=== PATIENT | male | born 1940 | race Caucasian/White ===

== ENCOUNTER 2019-11-12 05:42 | Emergency (ER) | payer MEDICARE, MEDICAID ==
--- NOTE | 2019-11-12 06:31 | EDM.PDOC ---
<OfficerFausto - Last Filed: 11/12/19 06:29> ED HPI GENERAL MEDICAL PROBLEM - General Chief Complaint: Gastrointestinal Problem Stated Complaint: LOWER ABD PAIN Time Seen by Provider: 11/12/19 06:23 Source of Information: Reports: Patient, Family, RN Notes Reviewed History Limitations: Reports: No Limitations - History of Present Illness INITIAL COMMENTS - FREE TEXT/NARRATIVE: 79-year-old gentleman presents emergency department a complaint of abdominal pain, the abdominal pain started early this morning pain was quite severe however it is now resolved he states he is not passing any gas has felt nauseated that has resolved had a normal bowel movement yesterday lower abd pain Pain Score (Numeric/FACES): 2 - Related Data Allergies Allergy/AdvReac Type Severity Reaction Status Date / Time pollen extracts Allergy Sneezing Verified 11/12/19 06:10 Home Meds: Home Meds Potassium Chloride 10 meq PO DAILY 11/12/19 [History] Simvastatin 40 mg PO DAILY 11/12/19 [History] hydroCHLOROthiazide [Hydrochlorothiazide] 25 mg PO DAILY 11/12/19 [History] lisinopriL [Lisinopril] 10 mg PO DAILY 11/12/19 [History] Past Medical History HEENT History: Reports: Impaired Vision Cardiovascular History: Reports: High Cholesterol, Hypertension Musculoskeletal History: Reports: Arthritis - Infectious Disease History Infectious Disease History: Reports: Measles Social & Family History - Tobacco Use Smoking Status *Q: Never Smoker - Caffeine Use Caffeine Use: Reports: Coffee - Recreational Drug Use Recreational Drug Use: No ED ROS GENERAL - Review of Systems Review Of Systems: See Below Constitutional: Reports: No Symptoms HEENT: Reports: No Symptoms Respiratory: Reports: No Symptoms Cardiovascular: Reports: No Symptoms GI/Abdominal: Reports: Abdominal Pain, Nausea. Denies: Constipation, Diarrhea, Flatus, Vomiting : Reports: No Symptoms Musculoskeletal: Reports: No Symptoms ED EXAM, GI/ABD - Physical Exam Exam: See Below Exam Limited By: No Limitations General Appearance: Alert, WD/WN, No Apparent Distress Head: Atraumatic, Normocephalic Neck: Normal Inspection, Supple, Non-Tender, Full Range of Motion Respiratory/Chest: No Respiratory Distress, Lungs Clear, Normal Breath Sounds, No Accessory Muscle Use, Chest Non-Tender Cardiovascular: Regular Rate, Rhythm, No Murmur GI/Abdominal Exam: Normal Bowel Sounds, Soft, Non-Tender, No Organomegaly, No Distention Course - Vital Signs Last Recorded V/S: Last Vital Signs Temp 96.4 F 11/12/19 06:04 Pulse 98 11/12/19 06:04 Resp 14 11/12/19 06:04 BP 138/79 11/12/19 06:04 Pulse Ox 100 11/12/19 06:04 - Orders/Labs/Meds Orders: Active Orders 24 hr Category Date Time Status Abdomen 1V Upright [CR] Urgent Exams 11/12/19 06:27 Taken Labs: Laboratory Tests 11/12/19 11/12/19 11/12/19 Range/Units 06:38 06:38 06:38 WBC 8.3 (4.5-11.0) K/uL RBC 3.71 L (4.30-5.90) M/uL Hgb 11.8 L (12.0-15.0) g/dL Hct 35.7 L (40.0-54.0) % MCV 96 (80-98) fL MCH 32 H (27-31) pg MCHC 33 (32-36) % Plt Count 278 (150-400) K/uL Neut % (Auto) 89 H (36-66) % Lymph % (Auto) 5 L (24-44) % Dickens % (Auto) 5 (2-6) % Eos % (Auto) 0 L (2-4) % Baso % (Auto) 0 (0-1) % Sodium 138 L (140-148) mmol/L Potassium 3.4 L (3.6-5.2) mmol/L Chloride 100 (100-108) mmol/L Carbon Dioxide 27 (21-32) mmol/L Anion Gap 14.4 H (5.0-14.0) mmol/L BUN 17 (7-18) mg/dL Creatinine 1.0 (0.8-1.3) mg/dL Est Cr Clr Drug Dosing 58.90 mL/min Estimated GFR (MDRD) > 60 (>60) Glucose 127 H (74-106) mg/dL Lactic Acid 3.2 H (0.4-2.0) mmol/L Calcium 8.8 (8.5-10.1) mg/dL Total Bilirubin 0.3 (0.2-1.0) mg/dL AST 21 (15-37) U/L ALT 19 (12-78) U/L Alkaline Phosphatase 47 (46-116) U/L Troponin I < 0.017 (0.000-0.056) ng/mL Total Protein 7.1 (6.4-8.2) g/dL Albumin 3.4 (3.4-5.0) g/dL Globulin 3.7 H (2.3-3.5) g/dL Albumin/Globulin Ratio 0.9 L (1.2-2.2) Lipase 88 (73-393) U/L Urine Color (YELLOW) Urine Appearance (CLEAR) Urine pH (5.0-8.0) Ur Specific Mullins (1.008-1.030) Urine Protein (NEGATIVE) mg/dL Urine Glucose (UA) (NEGATIVE) mg/dL Urine Ketones (NEGATIVE) mg/dL Urine Occult Blood (NEGATIVE) Urine Nitrite (NEGATIVE) Urine Bilirubin (NEGATIVE) Urine Urobilinogen (0.2-1.0) EU/dL Ur Leukocyte Esterase (NEGATIVE) Urine RBC (0-5) Urine WBC (0-5) Ur Epithelial Cells Amorphous Sediment Urine Bacteria Urine Mucus 11/12/19 Range/Units 07:23 WBC (4.5-11.0) K/uL RBC (4.30-5.90) M/uL Hgb (12.0-15.0) g/dL Hct (40.0-54.0) % MCV (80-98) fL MCH (27-31) pg MCHC (32-36) % Plt Count (150-400) K/uL Neut % (Auto) (36-66) % Lymph % (Auto) (24-44) % Dickens % (Auto) (2-6) % Eos % (Auto) (2-4) % Baso % (Auto) (0-1) % Sodium (140-148) mmol/L Potassium (3.6-5.2) mmol/L Chloride (100-108) mmol/L Carbon Dioxide (21-32) mmol/L Anion Gap (5.0-14.0) mmol/L BUN (7-18) mg/dL Creatinine (0.8-1.3) mg/dL Est Cr Clr Drug Dosing mL/min Estimated GFR (MDRD) (>60) Glucose (74-106) mg/dL Lactic Acid (0.4-2.0) mmol/L Calcium (8.5-10.1) mg/dL Total Bilirubin (0.2-1.0) mg/dL AST (15-37) U/L ALT (12-78) U/L Alkaline Phosphatase (46-116) U/L Troponin I (0.000-0.056) ng/mL Total Protein (6.4-8.2) g/dL Albumin (3.4-5.0) g/dL Globulin (2.3-3.5) g/dL Albumin/Globulin Ratio (1.2-2.2) Lipase (73-393) U/L Urine Color Yellow (YELLOW) Urine Appearance Clear (CLEAR) Urine pH 5.5 (5.0-8.0) Ur Specific Mullins 1.015 (1.008-1.030) Urine Protein Negative (NEGATIVE) mg/dL Urine Glucose (UA) 100 H (NEGATIVE) mg/dL Urine Ketones Negative (NEGATIVE) mg/dL Urine Occult Blood Negative (NEGATIVE) Urine Nitrite Negative (NEGATIVE) Urine Bilirubin Negative (NEGATIVE) Urine Urobilinogen 0.2 (0.2-1.0) EU/dL Ur Leukocyte Esterase Negative (NEGATIVE) Urine RBC Not seen (0-5) Urine WBC Not seen (0-5) Ur Epithelial Cells Not seen Amorphous Sediment Not seen Urine Bacteria Not seen Urine Mucus Moderate Departure - Departure Disposition: Home, Self-Care 01 Clinical Impression: Abdominal pain Qualifiers: Abdominal location: epigastric Qualified Code(s): R10.13 - Epigastric pain - Discharge Information Instructions: Abdominal Pain, Adult, [id number] Referrals: Jem More Sr, MD [Primary Care Provider] - Forms: ED Department Discharge Care Plan Goals: Increase activity and diet as tolerated and consider a few doses of MiraLAX over the next several days. Return if worsening such as increased pain or fever. Sepsis Event Note - Evaluation Sepsis Screening Result: No Definite Risk - Focused Exam Vital Signs: Vital Signs Temp Pulse Resp BP Pulse Ox 11/12/19 06:04 96.4 F 98 14 138/79 100 11/12/19 05:57 96.4 F 98 14 138/79 100 Date Exam was Performed: 11/12/19 Time Exam was Performed: 06:29 <Luigi Astudillo - Last Filed: 11/12/19 08:25> Course - Re-Assessments/Exams Free Text/Narrative Re-Assessment/Exam: 11/12/19 07:45 Care turned over from Officer pending lab and x-ray. X-ray shows a hiatal hernia, no other acute findings. Probable mild constipation. Patient had no symptoms the last hour and a half in the emergency room, and labs returned reassuring with a normal white count. He will be discharged and take a few doses of MiraLAX over the next several days and return if pain recurs especially if he develops a fever or other concerns. Departure - Departure Time of Disposition: 08:10 Sepsis Event Note - Focused Exam Date Exam was Performed: 11/12/19 Time Exam was Performed: 08:25
--- NOTE | 2019-11-12 09:32 | CR ---
Abdomen 1V Upright CLINICAL HISTORY: Pain FINDINGS: No free air is identified. The bowel gas pattern is nonobstructive. No abnormal masses are noted. There is a large hiatal hernia. There is fecal retention throughout the right and transverse colon. There are severe degenerative changes through the lumbar spine and both hips. IMPRESSION: Moderate fecal retention Large hiatal hernia Severe degenerative changes in the spine and hips
== END 2019-11-12 08:10 | disposition home or self-care (01) ==
LOC: JP.ED 05:42
DX: R10.13 Epigastric pain (principal); E78.00 Pure hypercholesterolemia, unspecified; I10 Essential (primary) hypertension; Z91.09 Other allergy status, other than to drugs and biological substances; Z79.899 Other long term (current) drug therapy
CPT/HCPCS: 36415; 74018; 74018-26; 80053; 81001; 83605; 83690; 84484; 85025; 99283; 99284-25

== ENCOUNTER 2021-02-11 18:24 | Emergency (ER) | payer MEDICARE, MEDICAID ==
[2021-02-11] MEDS ORDERED: HYDROmorphone 0.5 MG/0.5 ML Syringe IVPUSH ONE ×2 (18:44→21:29)
[2021-02-11] MEDS ORDERED: Ondansetron 4 MG/2 ML SDV IVPUSH ONE (18:44)
[2021-02-11] MEDS ORDERED: Sodium Chloride 0.9% 10 ML Syringe FLUSH PRN (18:44)
[2021-02-11] MEDS ORDERED: Lactated Ringers 1,000 ML IV SCH (18:45)
--- NOTE | 2021-02-11 18:50 | EDM.PDOC ---
ED HPI GENERAL MEDICAL PROBLEM - General Chief Complaint: Abdominal Pain Stated Complaint: NOT FEELING WELL Time Seen by Provider: 02/11/21 18:43 Source of Information: Reports: Patient History Limitations: Reports: No Limitations - History of Present Illness INITIAL COMMENTS - FREE TEXT/NARRATIVE: David is a 80-year-old male presenting to the ED for evaluation of acute onset of severe abdominal pain, nausea, and vomiting. The patient states his symptoms started about an hour prior to arrival. He is afebrile but tachycardic. While being checked into the room, the patient had a large volume emesis producing about 300 cc of bilious emesis. He denies any fever or chills, cough or shortness of breath, chest pain or back pain. Both he and his brother say that he had a similar episode about a year ago and they were not able to find anything. He has not been vaccinated yet for COVID-19 because of the lack of availability of vaccine at Dr. More's office. Abdomen Pain Score (Numeric/FACES): 2 - Related Data Allergies Allergy/AdvReac Type Severity Reaction Status Date / Time pollen extracts Allergy Sneezing Verified 11/12/19 06:10 Home Meds: Home Meds Potassium Chloride 10 meq PO DAILY 11/12/19 [History] Simvastatin 40 mg PO DAILY 11/12/19 [History] hydroCHLOROthiazide [Hydrochlorothiazide] 25 mg PO DAILY 11/12/19 [History] lisinopriL [Lisinopril] 10 mg PO DAILY 11/12/19 [History] Latanoprost/Pf [Latanoprost 0.005% Eye Drop] 1 drop EYEBOTH DAILY 02/11/21 [History] Past Medical History HEENT History: Reports: Impaired Vision Cardiovascular History: Reports: High Cholesterol, Hypertension Musculoskeletal History: Reports: Arthritis - Infectious Disease History Infectious Disease History: Reports: Measles Social & Family History - Caffeine Use Caffeine Use: Reports: Coffee ED ROS GENERAL - Review of Systems Review Of Systems: See Below Constitutional: Reports: No Symptoms HEENT: Reports: No Symptoms Respiratory: Reports: No Symptoms Cardiovascular: Reports: No Symptoms Endocrine: Reports: No Symptoms GI/Abdominal: Reports: Abdominal Pain (Severe epigastric and upper abdominal pain), Nausea, Vomiting (Bilious emesis) : Reports: No Symptoms Musculoskeletal: Reports: No Symptoms Skin: Reports: No Symptoms Neurological: Reports: No Symptoms Psychiatric: Reports: No Symptoms Hematologic/Lymphatic: Reports: No Symptoms Immunologic: Reports: No Symptoms ED EXAM, GI/ABD - Physical Exam Exam: See Below Exam Limited By: No Limitations General Appearance: Alert, Anxious, Moderate Distress Eyes: Bilateral: EOMI Throat/Mouth: Normal Inspection, Normal Oropharynx, Normal Voice, No Airway Compromise. 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 No: Distended, Guarding, Rigid, Rebound Back Exam: Normal Inspection Extremities: Normal Inspection, Normal Range of Motion Neurological: Alert, Oriented, Normal Cognition, No Motor/Sensory Deficits Psychiatric: Normal Affect, Normal Mood Skin Exam: Warm, Dry, Intact, Normal Color Lymphatic: No Adenopathy Course - Vital Signs Last Recorded V/S: Last Vital Signs Temp 36.2 C 02/11/21 19:10 Pulse 79 02/11/21 19:10 Resp 14 02/11/21 19:10 BP 125/77 02/11/21 19:10 Pulse Ox 99 02/11/21 19:10 - Orders/Labs/Meds Orders: Active Orders 24 hr Category Date Time Status Abdomen 1V Upright [CR] Stat Exams 02/11/21 21:38 Stop Req Chest 1V Frontal [CR] Stat Exams 02/11/21 21:38 Stop Req NG Tube Placement [CR] Stat Exams 02/11/21 21:37 Ordered CULTURE BLOOD [BC] Urgent Lab 02/11/21 18:50 Received CULTURE BLOOD [BC] Urgent Lab 02/11/21 19:00 Received UA W/MICROSCOPIC [URIN] Stat Lab 02/11/21 18:44 Ordered Iopamidol [Isovue-300 (61%)] Med 02/11/21 19:30 Active 100 ml IV . DIRECTED Lactated Ringers [Ringers, Lactated] 1,000 ml Med 02/11/21 18:45 Active IV ASDIRECTED Sodium Chloride 0.9% [Normal Saline] 80 ml Med 02/11/21 19:30 Active IV ASDIRECTED Sodium Chloride 0.9% [Saline Flush] Med 02/11/21 18:44 Active 10 ml FLUSH ASDIRECTED PRN Blood Culture x2 Reflex Set [OM.PC] Urgent Oth 02/11/21 18:46 Ordered Isolation [COMM] Stat Ot 02/11/21 19:14 Ordered NG [Nasogastric Orogastric Tube Insertion] [OM.PC] Ot 02/11/21 21:38 Ordered Routine Saline Lock Insert [OM.PC] Routine Ot 02/11/21 18:44 Ordered Medication Orders Lactated Ringer's (Ringers, Lactated) 1,000 mls @ 250 mls/hr IV ASDIRECTED CANDICE Last Admin: 02/11/21 18:56 Dose: 250 mls/hr Documented by: CORIE Sodium Chloride (Normal Saline) 80 mls @ 3 mls/sec IV ASDIRECTED CANDICE Last Admin: 02/11/21 19:43 Dose: 3 mls/sec Documented by: ALEKSANDR Iopamidol (Iopamidol 612 Mg/Ml 100 Ml Bottle) 100 ml IV . DIRECTED CANDICE Last Admin: 02/11/21 19:43 Dose: 100 ml Documented by: ALEKSANDR Sodium Chloride (Sodium Chloride 0.9% 10 Ml Syringe) 10 ml FLUSH ASDIRECTED PRN PRN Reason: Keep Vein Open Last Admin: 02/11/21 19:17 Dose: 10 ml Documented by: CORIE Labs: Laboratory Tests 02/11/21 02/11/21 02/11/21 Range/Units 18:50 18:50 18:50 WBC 6.8 (4.5-11.0) K/uL RBC 4.23 L (4.30-5.90) M/uL Hgb 13.4 (12.0-15.0) g/dL Hct 39.9 L (40.0-54.0) % MCV 94 (80-98) fL MCH 32 H (27-31) pg MCHC 34 (32-36) % Plt Count 302 (150-400) K/uL Neut % (Auto) 80 H (36-66) % Lymph % (Auto) 10 L (24-44) % Levy % (Auto) 9 H (2-6) % Eos % (Auto) 1 L (2-4) % Baso % (Auto) 0 (0-1) % Sodium 141 (140-148) mmol/L Potassium 3.6 (3.6-5.2) mmol/L Chloride 97 L (100-108) mmol/L Carbon Dioxide 30 (21-32) mmol/L Anion Gap 17.6 H (5.0-14.0) mmol/L BUN 19 H (7-18) mg/dL Creatinine 1.1 (0.8-1.3) mg/dL Est Cr Clr Drug Dosing 49.14 mL/min Estimated GFR (MDRD) > 60 (>60) Glucose 112 H (74-106) mg/dL Lactic Acid 2.6 H (0.4-2.0) mmol/L Calcium 9.2 (8.5-10.1) mg/dL Total Bilirubin 0.5 D (0.2-1.0) mg/dL AST 27 (15-37) U/L ALT 25 (12-78) U/L Alkaline Phosphatase 68 (46-116) U/L C-Reactive Protein 0.14 (0.0-0.3) mg/dL Total Protein 7.8 (6.4-8.2) g/dL Albumin 3.9 (3.4-5.0) g/dL Globulin 3.9 H (2.3-3.5) g/dL Albumin/Globulin Ratio 1.0 L (1.2-2.2) Lipase 95 (73-393) U/L Influenza Type A RNA (NEGATIVE) RSV RNA (INAAT) (NEGATIVE) Influenza Type B RNA (NEGATIVE) SARS-CoV-2 RNA (MARKOS) (NEGATIVE) 02/11/21 Range/Units 19:05 WBC (4.5-11.0) K/uL RBC (4.30-5.90) M/uL Hgb (12.0-15.0) g/dL Hct (40.0-54.0) % MCV (80-98) fL MCH (27-31) pg MCHC (32-36) % Plt Count (150-400) K/uL Neut % (Auto) (36-66) % Lymph % (Auto) (24-44) % Levy % (Auto) (2-6) % Eos % (Auto) (2-4) % Baso % (Auto) (0-1) % Sodium (140-148) mmol/L Potassium (3.6-5.2) mmol/L Chloride (100-108) mmol/L Carbon Dioxide (21-32) mmol/L Anion Gap (5.0-14.0) mmol/L BUN (7-18) mg/dL Creatinine (0.8-1.3) mg/dL Est Cr Clr Drug Dosing mL/min Estimated GFR (MDRD) (>60) Glucose (74-106) mg/dL Lactic Acid (0.4-2.0) mmol/L Calcium (8.5-10.1) mg/dL Total Bilirubin (0.2-1.0) mg/dL AST (15-37) U/L ALT (12-78) U/L Alkaline Phosphatase (46-116) U/L C-Reactive Protein (0.0-0.3) mg/dL Total Protein (6.4-8.2) g/dL Albumin (3.4-5.0) g/dL Globulin (2.3-3.5) g/dL Albumin/Globulin Ratio (1.2-2.2) Lipase (73-393) U/L Influenza Type A RNA Negative (NEGATIVE) RSV RNA (INAAT) Negative (NEGATIVE) Influenza Type B RNA Negative (NEGATIVE) SARS-CoV-2 RNA (MARKOS) Negative (NEGATIVE) Meds: Medications Generic Name Dose Route Start Last Admin Trade Name Freq PRN Reason Stop Dose Admin Lactated Ringer's 1,000 mls @ 250 mls/hr 02/11/21 18:45 02/11/21 18:56 Ringers, Lactated IV 250 mls/hr ASDIRECTED CANDICE Administration Sodium Chloride 80 mls @ 3 mls/sec 02/11/21 19:30 02/11/21 19:43 Normal Saline IV 3 mls/sec ASDIRECTED CANDICE Administration Iopamidol 100 ml 02/11/21 19:30 02/11/21 19:43 Iopamidol 612 Mg/Ml 100 Ml Bottle IV 100 ml . DIRECTED CANDICE Administration Sodium Chloride 10 ml 02/11/21 18:44 02/11/21 19:17 Sodium Chloride 0.9% 10 Ml Syringe FLUSH 10 ml ASDIRECTED PRN Administration Keep Vein Open Discontinued Medications Generic Name Dose Route Start Last Admin Trade Name Arlen PRN Reason Stop Dose Admin Hydromorphone HCl 0.5 mg 02/11/21 18:44 02/11/21 18:56 Hydromorphone 0.5 Mg/0.5 Ml Syringe IVPUSH 02/11/21 18:45 0.5 mg ONETIME ONE Administration Hydromorphone HCl 0.5 mg 02/11/21 21:29 02/11/21 21:32 Hydromorphone 0.5 Mg/0.5 Ml Syringe IVPUSH 02/11/21 21:30 0.5 mg ONETIME ONE Administration Hydromorphone HCl Confirm 02/11/21 21:30 Hydromorphone 0.5 Mg/0.5 Ml Syringe Administered 02/11/21 21:31 Dose 0.5 mg .ROUTE .STK-MED ONE Ondansetron HCl 4 mg 02/11/21 18:44 02/11/21 18:56 Ondansetron 4 Mg/2 Ml Sdv IVPUSH 02/11/21 18:45 4 mg ONETIME ONE Administration - Re-Assessments/Exams Free Text/Narrative Re-Assessment/Exam: 02/11/21 21:00 I reviewed the patient's labs showing a normal CBC. The patient's comprehensive metabolic panel is only significant for an anion gap of 17.6. The patient's lactic acid is elevated at 2.6. He does not appear septic with a normal pulse rate and temperature. His blood pressure is also stable at 161/82. We did proceed with a CT of the abdomen and pelvis with contrast demonstrating a large hiatal hernia containing distal stomach, consistent with a mesentero-axial volvulus. There is moderate gastric distention at transition point at the pylorus, highly concerning for strangulation and gastric outlet obstruction. They recommended surgical consult. I discussed the case with Dr. Hinojosa who states that he is already overloaded with cases and recommended transfer of the patient to another facility. I discussed the case with Dr. James from [facility] who recommended placement of an NG tube and admission of the patient to the hospitalist service with consultation to him when the patient arrives. We are arranging for the patient to go by [facility] code 3. 02/11/21 21:49 I also discussed the case with the hospitalist and the emergency room physician Dr. Sosa. Patient is excepted for transfer by ground. Departure - Departure Time of Disposition: 21:42 Disposition: DC/Tfer to [facility] 02 Clinical Impression: Gastric outlet obstruction, Hiatal hernia, Mesenteroaxial gastric volvulus - Discharge Information Referrals: Jem More Sr, MD [Primary Care Provider] - Forms: ED Department Discharge Sepsis Event Note (ED) - Focused Exam Vital Signs: Vital Signs Temp Pulse Resp BP Pulse Ox 02/11/21 19:10 36.2 C 79 14 125/77 99 02/11/21 18:53 36.2 C 123 H 20 173/101 H 100 - Problem List & Annotations (1) Abdominal pain SNOMED Code(s): 64852081 Code(s): R10.9 - UNSPECIFIED ABDOMINAL PAIN Status: Acute Priority: High Current Visit: No Qualifiers: Abdominal location: epigastric Qualified Code(s): R10.13 - Epigastric pain (2) Gastric outlet obstruction SNOMED Code(s): 975916311 Code(s): K31.1 - ADULT HYPERTROPHIC PYLORIC STENOSIS Status: Acute Priority: High Current Visit: Yes (3) Hiatal hernia SNOMED Code(s): 36873945 Code(s): K44.9 - DIAPHRAGMATIC HERNIA WITHOUT OBSTRUCTION OR GANGRENE Status: Acute Priority: High Current Visit: Yes (4) Mesenteroaxial gastric volvulus SNOMED Code(s): 78576825 Code(s): K31.89 - OTHER DISEASES OF STOMACH AND DUODENUM Status: Acute Priority: High Current Visit: Yes - Problem List Review Problem List Initiated/Reviewed/Updated: Yes - My Orders Last 24 Hours: My Active Orders 02/11/21 18:44 UA W/MICROSCOPIC [URIN] Stat Sodium Chloride 0.9% [Saline Flush] 10 ml FLUSH ASDIRECTED PRN Saline Lock Insert [OM.PC] Routine 02/11/21 18:45 Lactated Ringers [Ringers, Lactated] 1,000 ml IV ASDIRECTED 02/11/21 18:46 Blood Culture x2 Reflex Set [OM.PC] Urgent 02/11/21 18:50 CULTURE BLOOD [BC] Urgent 02/11/21 19:00 CULTURE BLOOD [BC] Urgent 02/11/21 19:14 Isolation [COMM] Stat 02/11/21 19:30 Iopamidol [Isovue-300 (61%)] 100 ml IV . DIRECTED Sodium Chloride 0.9% [Normal Saline] 80 ml IV ASDIRECTED 02/11/21 21:37 NG Tube Placement [CR] Stat 02/11/21 21:38 Abdomen 1V Upright [CR] Stat Chest 1V Frontal [CR] Stat NG [Nasogastric Orogastric Tube Insertion] [OM.PC] Routine - Assessment/Plan Last 24 Hours: My Active Orders 02/11/21 18:44 UA W/MICROSCOPIC [URIN] Stat Sodium Chloride 0.9% [Saline Flush] 10 ml FLUSH ASDIRECTED PRN Saline Lock Insert [OM.PC] Routine 02/11/21 18:45 Lactated Ringers [Ringers, Lactated] 1,000 ml IV ASDIRECTED 02/11/21 18:46 Blood Culture x2 Reflex Set [OM.PC] Urgent 02/11/21 18:50 CULTURE BLOOD [BC] Urgent 02/11/21 19:00 CULTURE BLOOD [BC] Urgent 02/11/21 19:14 Isolation [COMM] Stat 02/11/21 19:30 Iopamidol [Isovue-300 (61%)] 100 ml IV . DIRECTED Sodium Chloride 0.9% [Normal Saline] 80 ml IV ASDIRECTED 02/11/21 21:37 NG Tube Placement [CR] Stat 02/11/21 21:38 Abdomen 1V Upright [CR] Stat Chest 1V Frontal [CR] Stat NG [Nasogastric Orogastric Tube Insertion] [OM.PC] Routine
[2021-02-11] MEDS ORDERED: Iopamidol 612 MG/ML 100 ML Bottle IV SCH (19:30)
[2021-02-11] MEDS ORDERED: Sodium Chloride 0.9% 80 ML IV SCH (19:30)
[2021-02-11 19:56] LABS: CORONAVIRUS COVID-19 NAA NEGATIVE (NEGATIVE)
--- NOTE | 2021-02-11 21:19 | CRLCT ---
Indication: Abdominal pain, vomiting Technique: Contrast enhanced axial CT imaging through the abdomen and pelvis. 100 mL Isovue-300 contrast agent was administered intravenously. Sagittal and coronal reconstructions are provided. Comparison: None Findings: No abnormalities are demonstrated relating to the liver, gallbladder, spleen, pancreas, adrenal glands, and kidneys. The portal vein is patent. There is tortuosity and atherosclerosis of the abdominal without aortic aneurysm. There is no abdominal lymphadenopathy. There is a partially visualized large hiatal hernia, containing the gastric body and antrum, while the gastric fundus remains intra-abdominal, consistent with mesentero-axial volvulus. There is moderate gastric distention with transition point at the pylorus, highly concerning for strangulation and gastric outlet obstruction. There is no small bowel wall thickening or abnormal distention. The appendix is noninflamed. There is no colonic wall thickening, mesenteric edema, or intraperitoneal free fluid. There is mild urinary bladder wall thickening. There is no pelvic edema or free fluid. The prostate gland is not enlarged. Advanced degenerative changes are noted in the lumbar spine. There is mild bibasilar atelectasis. Impression: 1. Large hiatal hernia containing the distal stomach, consistent with mesentero-axial volvulus. Moderate gastric distention with transition point at the pylorus, highly concerning for strangulation and gastric outlet obstruction. Surgical consultation is recommended. Dr. Bergman was notified via phone call. 2. Mild urinary bladder wall thickening. Correlate with urinalysis to exclude cystitis. Please note that all CT scans at this facility use dose modulation, iterative reconstruction, and/or weight-based dosing when appropriate to reduce radiation dose to as low as reasonably achievable. Dictated by Wayne Hobbs MD @ 02/11/2021 9:19:[address] Wayne Hobbs @ Feb 11 2021 9:19PM
[2021-02-11] MEDS ORDERED: HYDROmorphone 0.5 MG/0.5 ML Syringe ONE (21:30)
--- NOTE | 2021-02-12 12:09 | CR ---
CHEST: Portable 02/11/2021 at 10:02 PM CLINICAL HISTORY:NG tube placement COMPARISON:None FINDINGS: Linear density in the left upper chest is most likely a skin fold. There is a double density in the retrocardiac region consistent with a hiatal hernia. NG tube is in the body of the stomach. Lungs are clear. There are atherosclerotic changes in the aorta. Impression: NG tube is in the mid stomach Hiatal hernia
== END 2021-02-11 22:21 ==
LOC: JP.ED 18:24
DX: K31.89 Other diseases of stomach and duodenum (principal); K44.0 Diaphragmatic hernia with obstruction, without gangrene; E78.00 Pure hypercholesterolemia, unspecified; I10 Essential (primary) hypertension; Z91.048 Other nonmedicinal substance allergy status; Z79.899 Other long term (current) drug therapy; Z20.822 Contact with and (suspected) exposure to COVID-19
CPT/HCPCS: 0241U; 36415; 43752; 71045; 71045-26; 74177; 80053; 81001; 83605; 83690; 85025; 86140; 87040; 96374; 96375; 96376; 99285; 99285-25; J1170; J2405; J7120; Q9967